=== PATIENT | female | born 1990 | race Caucasian/White ===

== ENCOUNTER 2022-03-16 17:04 | Emergency (ER) | payer SELFPAY ==
[~2022-03-16] VITALS: Ht 167.6 cm; Wt 54.4 kg
--- NOTE | 2022-03-16 17:11 | NUR ---
JUANJO CADENA, TAKEN TO LOBBY VIA W/C.
[2022-03-16 17:17] VITALS: BP 99/70
--- NOTE | 2022-03-16 17:53 | NUR ---
PT AMBULATED TO BATHROOM WITH STEADY GAIT
--- NOTE | 2022-03-16 18:00 | NUR ---
31 y/o female biba, c/o seizures that started today around 1530. pt states she has not been taking her medications depakote 750 bid for 1 month. also c/o sharp, constant 7/10 pain on right side of head. denies nausea, vomiting, diarrhea. skin is pink/warm/dry. a&o x4, ambulates with asisst at this time. lungs clear bl, heart rate even and regular. pt denies any fever, cp, sob, or cough at this time. patient positioned for comfort. hob elevated. bed down. ermd made aware of pt. pmh: seizures med: depakote (non compliant), motrin (no relief) nka
--- NOTE | 2022-03-16 18:18 | NUR ---
LAB AT BEDSIDE
[2022-03-16 18:26] LABS: BASOPHILS # (AUTO) 0.1 K/uL (0.00-0.22); BASOPHILS % (AUTO) 1.2 % (0.0-2.0); EOSINOPHILS # (AUTO) 0.2 K/uL (0-0.4); EOSINOPHILS % (AUTO) 1.9 % (0.0-4.0); HEMATOCRIT 38.1 % (36-48); HEMOGLOBIN 12.5 g/dL (12.0-16.0); LYMPHOCYTES # (AUTO) 2.7 K/uL (2.5-16.5); LYMPHOCYTES % (AUTO) 32.9 % (20.5-51.1); MEAN CORPUSCULAR HEMOGLOBIN 28 pg (27-31); MEAN CORPUSCULAR HGB CONC 33 g/dL (33-37); MEAN CORPUSCULAR VOLUME 86.4 fL (80-94); MONOCYTES # (AUTO) 0.6 K/uL (0.8-1.0); MONOCYTES % (AUTO) 6.8 % (1.7-9.3); NEUTROPHILS # (AUTO) 4.7 K/uL (1.8-7.7); NEUTROPHILS % (AUTO) 57.2 % (42.2-75.2); PLATELET COUNT (AUTO) 363 K/uL (140-450); RED BLOOD CELL COUNT(AUTO) 4.41 MIL/uL (4.20-5.40); RED CELL DISTRIBUTION WIDTH 13.7 % (11.6-13.7); WHITE BLOOD COUNT (AUTO) 8.2 K/uL (4.8-10.8)
[2022-03-16 18:35] LABS: ANION GAP 13.8 (8-16); CARBON DIOXIDE 25.1 mmol/L (21-32); CREATININE 0.5 mg/dL (0.6-1.3); POTASSIUM 3.9 mmol/L (3.5-5.1)
[2022-03-16] MEDS ORDERED: DIVA250E1 PO (18:53)
[2022-03-16] MEDS ORDERED: DIVA500E1 PO (18:53)
[2022-03-16] MEDS ORDERED: ACET-8386 PO (18:53)
[2022-03-16 19:19] VITALS: BP 99/70
--- NOTE | 2022-03-16 19:19 | NUR ---
Patient discharged with v/s stable. Written and verbal after care instructions given and explained. Patient alert, oriented and verbalized understanding of instructions. Ambulatory with friend to car. All questions addressed prior to discharge. ID band removed. Patient advised to follow up with PMD. Rx of hydrocodone, depakote (sent) given. Patient educated on indication of medication including possible reaction and side effects. Opportunity to ask questions provided and answered.
== END 2022-03-16 19:16 | disposition home or self-care (01) ==
LOC: MED 17:04
DX: R56.9 Unspecified convulsions (principal); R51.9 Headache, unspecified; J45.909 Unspecified asthma, uncomplicated; F17.200 Nicotine dependence, unspecified, uncomplicated; Z98.890 Other specified postprocedural states
CPT/HCPCS: 36415; 80048; 81025; 85025; 99283